=== PATIENT | female | born 1965 | race African-American/Black ===

== ENCOUNTER → 2020-07-30 | Day surgery (SDC) | payer BC | END | disposition home or self-care (01) | LOC: FMAMMOTONE 10:01 | PROVIDERS: ATTEND Surgery Surgical Oncology | PROC: 0HBT3ZX Excision of Right Breast, Percutaneous Approach, Diagnostic (ICD-10-PCS; principal; 2020-07-30) | DX: C50.911 Malignant neoplasm of unspecified site of right female breast (principal); Z17.0 Estrogen receptor positive status [ER+]; R92.8 Other abnormal and inconclusive findings on diagnostic imaging of breast | CPT/HCPCS: 19081; 88305-TC; 88342-TC; A4648 ==